=== PATIENT | female | born 1990 | race African-American/Black ===

== ENCOUNTER 2021-08-22 12:26 | Emergency (ER) | payer MEDICAID ==
[~2021-08-22] VITALS: Ht 175.3 cm; Wt 50.0 kg
[2021-08-22 13:19] LABS: CLARITY URINE CLEAR (CLEAR); COLOR URINE DARK YELLOW (YELLOW); KETONES URINE 2+ (NEGATIVE); LEUKOCYTE ESTERASE URINE 2+ (NEGATIVE); NITRITE URINE NEGATIVE (NEGATIVE); OCCULT BLOOD URINE TRACE (NEGATIVE); PH URINE 5.5 (4.5-8.0); PROTEIN URINE 1+ (NEGATIVE)
[2021-08-22 13:40] LABS: BASOPHILS % 0.4 % (0.0-2.0); EOSINOPHILS % 0.3 % (0.0-5.0); HEMATOCRIT. 40.9 % (36.0-48.0); HEMOGLOBIN. 13.8 g/dL (12.0-16.0); LYMPHOCYTES % 17.9 % (20.0-50.0); MEAN CORPUSCULAR HEMOGLOBIN 31.5 pg (28.0-32.0); MEAN CORPUSCULAR VOLUME 93.5 fL (81.0-99.0); MEAN PLATELET VOLUME 8.5 fl (7.4-10.4); MONOCYTES % 7.2 % (2.0-8.0); NEUTROPHILS % 74.2 % (40.0-76.0); PLATELET 296 x1000/uL (130-400); RED BLOOD CELL COUNT 4.37 mill/uL (4.2-5.4); RED CELL DISTRIBUTION WIDTH 13.1 % (11.6-14.6)
[2021-08-22 13:43] LABS: CHLORIDE 107 mEq/L (98-107)
[2021-08-22] MEDS ORDERED: CEPH500T MT (15:42)
[2021-08-22] MEDS: SODIUM CHLORIDE 0.9% 1000ML BAG (SEPSIS BOLUS) IV ONE (15:58)
[2021-08-22] MEDS ORDERED: CEPHALEXIN 250MG CAPSULE PO NR (16:00)
[2021-08-22 16:02] VITALS: BP 130/55
== END 2021-08-22 16:03 | disposition home or self-care (01) ==
LOC: ER 12:26
DX: N39.0 Urinary tract infection, site not specified (principal); R10.2 Pelvic and perineal pain
CPT/HCPCS: 36415; 71045; 80053; 81003; 81025; 83605; 83690; 84145; 85025; 87040; 87077; 87086; 87186; 99284; J7030